=== PATIENT | male | born 1975 | race Caucasian/White ===

== ENCOUNTER 2024-03-11 15:14 | Inpatient (IN) | payer OTHER, SELFPAY ==
[2024-03-11] VITALS (8 sets, daily range): BP systolic 120–189; BP diastolic 73–111; BMI 31.1
[2024-03-11] MEDS: ZOSYN 100 IV (11:19)
[2024-03-11] MEDS: VANCOCIN 540 MG IV (11:51)
[2024-03-11 11:58] LABS: Blood Urea Nitrogen 10 mg/dl (9-20); Calcium 9.5 mg/dl (8.4-10.2); Carbon Dioxide 27 mmol/L (22-30); Chloride 104 mmol/L (98-107); Estimated Creatinine Clearance > 125 ml/min; Glucose 106 mg/dl (70-99); Potassium 4.6 mmol/L (3.5-5.1); Sodium 139 mmol/L (135-145); eGFR > 60.00
[2024-03-11 12:04] LABS: Hematocrit 36.6 % (39.0-52.0); Hemoglobin 12.8 g/dL (13.0-18.0); Mean Corpuscular Hgb 28.4 pg (27.0-31.0); Mean Corpuscular Volume 81.2 fL (80.0-94.0); Mean Platelet Volume 9.6 fL (7.4-10.4); Platelet Count 172 10^3/uL (130-400); Red Blood Cell Count 4.51 10^6/uL (4.70-6.10); Red Cell Dist. Width 13.2 % (11.5-14.5); White Blood Cell Count 3.7 10^3/uL (4.8-10.8)
[2024-03-11 12:13] LABS: Absolute Neutrophils -Man Diff 1.3 10^3/uL (1.4-6.5); Atypical Lymphocytes 2 %; Band Neutrophils 2 % (0-3); Eosinophils 8 % (0-6); Lymphocytes 38 % (20-51); Monocytes 16 % (2-9); Segmented Neutrophils 34 % (42-75)
[2024-03-11 12:14] LABS: Anisocytosis 1+; Normal RBC Morphology No; Platelets Checked Yes
[2024-03-11 12:15] LABS: Hypochromasia Slight; Polychromasia 1+; Total Cells Counted 100
--- NOTE | 2024-03-11 12:52 | ED.GENMED ---
History of Present Illness
General
Chief Complaint: Facial Problem
Source: patient
Exam Limitations: none
Time Seen by Provider: 03/11/24 10:54
History of Present Illness
History of Present Illness:
Patient with left pinna injection for eczema on March 02. March 07 was seen for redness and swelling. Started doxycycline 200 mg/day. Symptoms progressed. Given Rocephin 2 days ago and changed to cephalexin. However symptoms have continued to
progress. 102 fever 2 days ago. Some pain to the ear and jaw.
Past History
Past History
ED Past Medical History: GERD, HTN and Hypothyroidism
ED Past Surgical History: None
Social History
Tobacco: Non-smoker
Alcohol: Occasional
Living: with family
Employment: Employed
Review of Systems
Review of Systems
Constitutional: Reports fever
Phy Exam
Physical Exam
Physical Exam:
GENERAL: Alert and oriented in no apparent distress
EYE: Orbits normal.
NECK: Supple, left submandibular adenopathy. Tender preauricular nodes. Significant swelling and erythema to the left pinna with deformity. Some fluctuance towards the more superior aspect
ENT: Pharynx without erythema. No drooling or stridor
CARDIAC: Regular rate and rhythm without any obvious murmurs.
LUNGS: Clear breath sounds,normal
NEUROLOGICAL: Alert and oriented , grossly non-focal
SKIN: Warm and dry, no rash or lesion, no discoloration, skin intact.
PSYCH: Normal and appropriate interaction.
Course
Orders/Labs/Results
Orders:
Orders
03/11/24 11:08
IV Insert/Care/Rem.- Treatment PRN
03/11/24 11:10
Piperacillin/Tazo 4.5 Gram [Zosyn] 4.5 gram in 100 ml IV NOW
03/11/24 11:18
Basic Metabolic Panel Urgent
Complete Blood Count/With Diff Urgent
Manual Differential Urgent
03/11/24 11:24
Vancomycin [Vancocin] 2,000 mg 0.9% Sodium Chloride 500 ml [Nss] 500 ml IV NOW
03/11/24 13:18
Ketorolac [Toradol] 15 mg .ROUTE .STK-MED ONE
03/11/24 13:19
Ketorolac [Toradol] 15 mg IV NOW STA
Abnormal Lab Results
03/11/24
11:18
WBC 3.7 L 10^3/uL
(4.8-10.8)
RBC 4.51 L 10^6/uL
(4.70-6.10)
Hgb 12.8 L g/dL
(13.0-18.0)
Hct 36.6 L %
(39.0-52.0)
Abs Neuts (Manual) 1.3 L 10^3/uL
(1.4-6.5)
Segmented Neutrophils 34 L %
(42-75)
Monocytes (Manual) 16 H %
(2-9)
Eosinophils (Manual) 8 H %
(0-6)
Glucose 106 H mg/dl
(70-99)
03/11/24 11:18
03/11/24 11:18
Vital Signs
Initial and Last Documented VS:
Initial Vital Signs
Temp Pulse Resp BP Pulse Ox
98.2 F 79 18 189/111 99
03/11/24 09:49 03/11/24 09:49 03/11/24 09:49 03/11/24 09:49 03/11/24 09:49
Last Documented Vital Signs
Temp Pulse Resp BP Pulse Ox
98.2 F 79 18 141/81 98
03/11/24 09:49 03/11/24 09:49 03/11/24 09:49 03/11/24 13:00 03/11/24 13:21
*Critical Care Note
Total Time (30-74mins, 75-104mins- exclusive of procedures): Not Applicable
ED Attending Note
-
Portions of this chart may have been created with voice recognition software.� Occasional wrong word or��sound alike� substitutions may have occurred due to the inherent limitations of voice recognition software.
Discharge Plan
Departure
Patient Disposition: Admit
Date of Disposition: 03/11/24
Time of Disposition: 12:51
Presentation/result/management discussed w/ accepting MD/DO: ENT
Discharge Problem:
Left pinna cellulitis/abscess, Failed outpatient management
Prescriptions:
No Action
lansoprazole [Prevacid] 30 MG capsule,delayed release(DR/EC)
30 mg PO BID
Theragen Tablet
1 tab PO DAILY
alprazolam [Xanax] 0.5 mg Tablet
0.25 mg PO DAILYPRN PRN (Reason: anxiety)
famotidine [Pepcid] 20 mg Tablet
20 mg PO HS
cephalexin 500 mg Capsule
500 mg PO Q8H
calcium polycarbophil [FiberCon] 625 mg Tablet
625 mg PO BID
valsartan 160 mg Tablet
160 mg PO DAILY
Visbiome 112.5 billion cell Capsule
1 cap PO DAILY
cholecalciferol (vitamin D3) [Vitamin D3] 50 mcg (2,000 unit) Capsule
50 mcg PO DAILY
coQ10 (ubiquinol) 100 mg Capsule
100 mg PO DAILY
Neuriva Plus Brain Performance 1.7 mg-400 mcg- 2.4 mcg Capsule
1 cap PO DAILY
SAMe butanedisulfonate-betaine 400-600 mg Powder In Packet
1 ea PO BID
Referrals:
Don Remy DO [Family Provider] -
Interventions
Interventions:
*Risk Screen - Suicide Last Done: 03/11/24 09:49
*General Assessment Last Done: 03/11/24 09:49
*Neglect/Abuse Screening Last Done: 03/11/24 09:49
*ED COVID-19 Vaccine History Last Done: 03/11/24 11:55
ED- Neurological Assessment Last Done: 03/11/24 11:16
ED-Skin Assessment Last Done: 03/11/24 11:16
Discharge Date and Time
Print Language: IRISH
[2024-03-11] MEDS: TORADOL 15 MG IV (13:20)
--- NOTE | 2024-03-11 14:56 | CON.MD ---
Consultation - Medical
-
dictated
L ear chondritis, with a tiny abscess
cx obtained]
very likely pseudomonas
on zosyn/vanco
will follow
--- NOTE | 2024-03-11 15:02 | HPS.HSE ---
Family Physician
-
Family Physician: Don Remy
Chief Complaint
-
progressive erythema/fever at the pinna
History of Present Illness
48-year-old male with past medical history of GERD, hypertension, eczema now presents for persistent erythema, swelling of the left ear. Particularly the left pinna after there was an injection of steroids for eczema on March 02. Patient states
he was injected twice. Patient was subsequently seen 5 days afterwards for redness and swelling, patient symptoms were refractory to doxycycline, Rocephin, cephalexin. Spiked a temperature of 102 Fahrenheit 2 days ago. Now presenting with ear and
jaw pain as well. Remains afebrile at present, blood pressure 136/73, pulse 79. White count 3.7, mild neutropenia. Wound culture taken, started on IV antibiotics. ENT was consulted.
Medical History
Past Medical History
Past Medical History: Reports GERD and HTN
Additional Past Medical History:
Eczema
Past Surgical History: Reports None
Social History
Tobacco: Non-smoker
Alcohol: None
Family History
Family History: Not pertinent
Allergies / Home Medications
Allergies reflects when Allergies were last updated in [facility].
Home Medications with original date entered in [facility]
Allergy/Medication List:
Allergies
Allergy/AdvReac Type Severity Reaction Status Date / Time
No Known Allergies Allergy Verified 03/11/24 09:49
Home Medications
lansoprazole 30 mg capsule,delayed release (Prevacid) 30 mg PO BID 05/03/18
B6 1.7 mg-folic 400 mcg-B12 2.4 nez-drlhln-nnebxzxibyvo oral capsule (Neuriva Plus Brain Performance) 1 cap PO DAILY 03/11/24
Lactobac no.2-Bifidobac no.1-S. thermo 112.5 billion cell capsule (Visbiome) 1 cap PO DAILY 03/11/24
SAMe butanedisulfonate 400 mg-betaine 600 mg oral powder packet 1 ea PO BID 03/11/24
alprazolam 0.5 mg tablet (Xanax) 0.25 mg PO DAILYPRN PRN anxiety 03/11/24
calcium polycarbophil 625 mg tablet (FiberCon) 625 mg PO BID 03/11/24
cephalexin 500 mg capsule 500 mg PO Q8H 03/11/24
cholecalciferol (vitamin D3) 50 mcg (2,000 unit) capsule (Vitamin D3) 50 mcg PO DAILY 03/11/24
coQ10 (ubiquinol) 100 mg capsule 100 mg PO DAILY 03/11/24
famotidine 20 mg tablet (Pepcid) 20 mg PO HS 03/11/24
therapeutic multivitamin 1 tab PO DAILY 03/11/24
valsartan 160 mg tablet 160 mg PO DAILY 03/11/24
Review of Systems
-
A 12 point ROS was completed and negative except as noted: Yes
Physical Exam
Vital Signs
Vital Signs
Temp Pulse Resp BP Pulse Ox
98.2 F 79 18 136/73 98
03/11/24 09:49 03/11/24 09:49 03/11/24 09:49 03/11/24 14:00 03/11/24 14:45
Physical Exam
General: Well Developed and Well Nourished
HEENT: Other (Supple, left submandibular adenopathy. Tender preauricular nodes. Significant swelling and erythema to the left pinna with deformity. Some fluctuance towards the more superior aspect)
Respiratory: Clear
Cardiac: S1/S2
GI: Soft, Non Tender and Non Distended
Musculoskeletal: No Clubbing
Skin: Warm and Dry
Neuro: Awake, Alert, Oriented and AO x 3
Hematologic/Lymphatic: No Lymphadenopathy
Psych: Calm
Laboratory Results
-
03/11/24 11:18
03/11/24 11:18
Data Reviewed
-
Lab Data: Labs Reviewed by me
Impression/Plan
-
IMPRESSION:
48-year-old male with past medical history of GERD, hypertension, eczema now presents for persistent erythema, swelling of the left ear after steroid injection.
PLAN:
#Left Ear/Pinna cellulitis/Chondritis
#Small Abscess
-CT facial bone/temporal bone to rule out underlying abscess
- Vanc, Cefepime
-F/u cultures
-ENT (Dr. bullard Consulted)
�IVF as needed
� Monitor fever curve, white count
#Hypertension
� Continue losartan
#GERD
� Continue PPI, famotidine
#DVT prophylaxis
� HSQ
--- NOTE | 2024-03-11 16:25 | PHA.VAN.IN ---
Assessment
- Assessment
Renal Function: Appears similar to baseline
AUC Dosing Plan
- Dosing Variables
Dosing Weight (kg): 114
Dosing CrCl (ml/min): 125
Vd coefficient (L/kg): 0.7
- Empiric Dosing
Initial / Loading Dose: 2000mg - 03/11 11:51
Maintenance Regimen: Vanc 1750mg Q12H - give 1000mg x1 at 2000 and start regimen 03/12 0600
Estimated AUC (mcg*h/mL): 450
Estimated Peak (mcg*h/mL): 30.2
Estimated Trough (mcg/ml): 10.2
Estimated Half Life (H): 6.4
- Monitoring
No levels ordered at this time: consider levels in next few days
Pharmacokinetics Vancomycin I
- -
Patient Age: 48
Patient Sex: Male
Vancomycin Day #: 1
Indication: Skin And Soft Tissue
Requesting Provider: Dr. Lugo
Pertinent Antimicrobial Allergies:
NKDA
Height / Weight:
Height 6 ft 2 in
Actual Weight 113.8 kg
Pertinent Past Medical History: BMI ~32
- Vital Signs / Lab Results
Temp Pulse Resp BP Pulse Ox
99.1 F 75 18 132/86 99
03/11/24 16:24 03/11/24 16:24 03/11/24 16:24 03/11/24 16:24 03/11/24 16:24
Lab Results - Hematology
03/11/24
11:18
WBC 3.7 L
Band Neutrophils 2
Lab Results - Chemistry
03/11/24
11:18
BUN 10
Creatinine 0.9
Estimated Creat Clear > 125
[2024-03-11] MEDS: HEPARIN 5000 UNITS SC ×2 (16:54→23:00)
[2024-03-11] MEDS: MAXIPIME 2000 MG IV ×2 (16:54→23:00)
[2024-03-11] MEDS: STERILE WATER FOR INJECTION 10 ML IV ×2 (16:54→23:00)
[2024-03-11] MEDS: NSS 1000 IV (16:55)
[2024-03-11] MEDS: VANCOCIN 200 IV (19:58)
[2024-03-11] MEDS: PROTONIX 40 MG PO (20:02)
[2024-03-11] MEDS: TYLENOL 650 MG PO (20:02)
[2024-03-11] MEDS: FIBERCON 625 MG PO (20:02)
--- NOTE | 2024-03-11 20:15 | PTCARENOTE ---
Resumed care of pt sitting up in bed AAOx3. Pt reports headache and left ear pain /. PRN Tylenol administered as ordered. Left arm int now infusing ABX as ordered. Pt denies any other complaints at this time. Call [facility] in reach. Will continue to
monitor.
[2024-03-11] MEDS: PEPCID 20 MG PO (22:47)
[2024-03-11] MEDS: XANAX 0.25 MG PO (22:50)
[2024-03-12] MEDS: VANCOCIN 535 MG IV ×2 (05:59→18:27)
[2024-03-12 07:30] VITALS: BP 152/91
[2024-03-12] MEDS: STERILE WATER FOR INJECTION 10 ML IV ×3 (07:51→23:42)
[2024-03-12] MEDS: PROTONIX 40 MG PO ×2 (07:52→17:18)
[2024-03-12] MEDS: DIOVAN 160 MG PO (07:52)
[2024-03-12] MEDS: HEPARIN 5000 UNITS SC ×3 (07:52→23:42)
[2024-03-12] MEDS: FIBERCON 625 MG PO ×2 (07:52→19:49)
[2024-03-12] MEDS: MAXIPIME 2000 MG IV ×3 (07:52→23:42)
[2024-03-12] MEDS: VISBIOME 1 CAP PO (07:53)
[2024-03-12] MEDS: NON-FORMULARY ITEM 1 UNIT PO ×2 (07:54→15:50)
--- NOTE | 2024-03-12 08:57 | PHA.VAN.FU ---
Vancomycin Assessment / Plan
- Assessment
Renal Function: Stable
WBC's are: WNL
In the past 24 hrs, patient has been: Afebrile
Concomitant Antimicrobials: Cefepime
- Dosing Plan
Continue: 1750mg Q12H
- Monitoring Plan
No level(s) ordered at this time: Consider levels in next few days
- Follow Up
Pharmacy will continue to follow.
Vancomycin Follow UP
- -
Patient Age: 48
Patient Sex: Male
Vancomycin Day #: 2
Indication: Skin And Soft Tissue
Requesting Provider: Dr. Lugo
Pertinent Antimicrobial Allergies:
NKDA
Height / Weight:
Height 6 ft 2 in
Actual Weight 109.724 kg
Pertinent Past Medical History: BMI ~32
- Vital Signs / Lab Results
Temp Pulse Resp BP Pulse Ox
98.4 F 72 18 152/91 100
03/12/24 07:30 03/12/24 07:30 03/12/24 07:30 03/12/24 07:30 03/12/24 07:30
Lab Results - Hematology
03/11/24
11:18
WBC 3.7 L
Band Neutrophils 2
Lab Results - Chemistry
03/11/24
11:18
BUN 10
Creatinine 0.9
Estimated Creat Clear > 125
Microbiology Results
03/11/24 14:58 Wound Culture - Preliminary
Abscess Staphylococcus species
[2024-03-12 09:05] LABS: Hemoglobin 13.2 g/dL (13.0-18.0); Mean Corp Hgb Conc. 34.7 g/dL (33.0-37.0); Mean Corpuscular Hgb 28.8 pg (27.0-31.0); Mean Platelet Volume 9.6 fL (7.4-10.4); Platelet Count 181 10^3/uL (130-400); Red Blood Cell Count 4.58 10^6/uL (4.70-6.10); White Blood Cell Count 3.1 10^3/uL (4.8-10.8)
--- NOTE | 2024-03-12 09:11 | W.PN.ENT ---
Today's Communication
-
L pinna chondritis/small abscess
symptomatically much better, small area of fluctuance still
--will return later today to re-aspirate, await final C&S results
incidental maxillary sinus atelectasis, asymptomatic
--further treatment if becomes symptomatic
Impression / Plan
-
L pinna chondritis/small abscess
symptomatically much better, small area of fluctuance still
--will return later today to re-aspirate, await final C&S results
incidental maxillary sinus atelectasis, asymptomatic
--further treatment if becomes symptomatic
Subjective Data
-
no further ear pain, no dc.
denies facial pain/pressure, some clear rhinorrhea, no nasal obst, no diplopia or visual problems
recent URI rx'ed with abx, steroids
Objective Data
-
Vital Signs
Temp Pulse Resp BP Pulse Ox
98.4 F 72 18 152/91 100
03/12/24 07:30 03/12/24 07:30 03/12/24 07:30 03/12/24 07:30 03/12/24 07:30
Intake & Output
03/11/24 03/12/24 03/13/24
06:59 06:59 06:59
Intake:
Oral fluids 800 / 800
IV piggybacks 735 / 735
Other:
Number of approximated MODERATE 3
amounts of urine
Lab Results
03/12/24 08:33
Calcium 9.5 mg/dl (8.4-10.2) 03/11/24 11:18
Physical Exam
-
L pinna with 1cm area of fluctuance superiorly, less erythema, no tenderness
nose normal
98.6
WBC pending
prelim cx=S. Aureus
CT temp bones reviewed, L pinna edema, B maxillary opacification with L>R atelectasis
[2024-03-12 09:32] LABS: ALT (SGPT) 31 U/L (0-50); AST (SGOT) 28 U/L (17-59); Albumin 4.1 g/dl (3.5-5.0); Alkaline Phosphatase 49 U/L (38-126); Blood Urea Nitrogen 9 mg/dl (9-20); Calcium 9.4 mg/dl (8.4-10.2); Carbon Dioxide 26 mmol/L (22-30); Chloride 105 mmol/L (98-107); Estimated Creatinine Clearance > 125 ml/min; Glucose 104 mg/dl (70-99); Potassium 4.3 mmol/L (3.5-5.1); Sodium 137 mmol/L (135-145); Total Bilirubin 0.5 mg/dl (0.2-1.3); Total Protein 6.5 g/dl (6.3-8.2); eGFR > 60.00
--- NOTE | 2024-03-12 11:05 | W.PN.UPDATE ---
Update Note
Progress Note Update
L pinna abscess I&D'ed. verbal consent (bleeding, continued infection). 1/4 cc local/epi. incised w/11 blade. 1 cc pus expressed. dressing applied, can be removed later today.
--- NOTE | 2024-03-12 13:24 | W.PN.HOSP.TC ---
Today's Communication/Plan
-
CW abx
Follow cx data
Assessment / Plan
Assessment / Plan
48-year-old male with past medical history of GERD, hypertension, eczema now presents for persistent erythema, swelling of the left ear after steroid injection.
PLAN:
#Left Ear/Pinna cellulitis/Chondritis
#Small Abscess
-CT facial bone/temporal bone shows cellulitis
- s/p local I&D by ENT
- CW showing staph aureus - follow identification and sensitivities
- cw Vanc, Cefepime for today
#Hypertension
� Continue losartan
#GERD
� Continue PPI, famotidine
#DVT prophylaxis
� HSQ
Anticipated Discharge: 24 - 48 hours
Subjective/Interval History
-
Date of Service: March 12, 2024
s/p I*D of left ear pinna today .
Pain from pinna bit more after I&D
No fever /chills
Objective Data
-
Labs:
Laboratory Results
03/12/24
08:33
WBC 3.1 L
Hgb 13.2
Hct 38.0 L
Plt Count 181
Sodium 137
Potassium 4.3
Chloride 105
Carbon Dioxide 26
BUN 9
Creatinine 0.9
Glucose 104 H
Calcium 9.4
Total Bilirubin 0.5
AST 28
ALT 31
Alkaline Phosphatase 49
Vital Signs:
Vital Signs
Temp Pulse Resp BP Pulse Ox
98.4 F 72 18 152/91 100
03/12/24 07:30 03/12/24 07:30 03/12/24 07:30 03/12/24 07:30 03/12/24 07:30
I&O
03/11/24 03/12/24 03/13/24
06:59 06:59 06:59
Intake Total 5 / 1535
Balance 1534 / 153
Review of Systems
-
Constitutional: Denies Fever
EENT: Denies Sore Throat
Respiratory: Denies Trouble Breathing
Cardiac: Denies Chest Pain
Abdomen/GI: Denies Nausea or Vomiting
Neuro: Denies Dizzy
Physical Exam
-
General: No Apparent Distress
HEENT: Moist Mucous Membranes
Respiratory: Non Labored Respirations; Negative Accessory Resp Muscle Use
Skin: Other (left ear in dressing s/p i&d this morning)
Neuro: AO x 3
Psych: Calm; Negative Confused or Agitated
Data Reviewed
-
Labs: Labs Reviewed by me
[2024-03-12] MEDS: TORADOL 15 MG IV (13:42)
[2024-03-12 16:00] VITALS: BP 135/84
--- NOTE | 2024-03-12 16:38 | CM ---
Reviewed chart, met with patient to obtain information for assessment. Patient stated that he lives with his who was at bedside to obtain information for assessment. Patient stated that he lives with his four children. They are in a two story
home with two steps to enter. He described himself as independent with his ADLs, personal care, dressing and bathing. He ambulates without device. He denied any DME in his home. 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 Patient can drive
and can transport himself to the store and does his own shopping.
Patient has never had VN services. He has not been to a SNF.
Patient has a prescription plan and uses, [facility] pharmacy in [place] for all of his medications.
His PCP is, Don Tinoco.
Patient stated that he feels he is at baseline and would like to return home when medically cleared.
Plan: Case management will continue to follow and assist with discharge planning. Home when stable.
[2024-03-12] MEDS: PEPCID 20 MG PO (19:48)
[2024-03-12 23:00] VITALS: BP 127/77
[2024-03-12] MEDS: XANAX 0.25 MG PO (23:42)
[2024-03-12] MEDS: TYLENOL 650 MG PO (23:47)
[2024-03-13 07:00] VITALS: BP 137/89
[2024-03-13] MEDS: VANCOCIN 535 MG IV (07:00)
[2024-03-13] MEDS: ZOFRAN 4 MG IV (07:00)
[2024-03-13 07:20] LABS: Hematocrit 38.1 % (39.0-52.0); Hemoglobin 13.4 g/dL (13.0-18.0); Mean Corp Hgb Conc. 35.2 g/dL (33.0-37.0); Mean Corpuscular Volume 82.5 fL (80.0-94.0); Mean Platelet Volume 9.6 fL (7.4-10.4); Platelet Count 191 10^3/uL (130-400); Red Blood Cell Count 4.62 10^6/uL (4.70-6.10); Red Cell Dist. Width 12.8 % (11.5-14.5); White Blood Cell Count 3.5 10^3/uL (4.8-10.8)
[2024-03-13 07:33] LABS: ALT (SGPT) 29 U/L (0-50); AST (SGOT) 27 U/L (17-59); Albumin 4.3 g/dl (3.5-5.0); Alkaline Phosphatase 50 U/L (38-126); Blood Urea Nitrogen 10 mg/dl (9-20); Calcium 9.7 mg/dl (8.4-10.2); Carbon Dioxide 28 mmol/L (22-30); Chloride 104 mmol/L (98-107); Estimated Creatinine Clearance 122 ml/min; Glucose 111 mg/dl (70-99); Potassium 4.6 mmol/L (3.5-5.1); Sodium 139 mmol/L (135-145); Total Bilirubin 0.5 mg/dl (0.2-1.3); Total Protein 6.7 g/dl (6.3-8.2); eGFR > 60.00
[2024-03-13 08:05] LABS: % Basophils 1.4 % (0-2); % Eosinophils 5.6 % (0-6); % Immature Granulocytes 0.6 % (0-0.5); % Lymphocytes 51.7 % (20.5-51.1); % Monocytes 8.8 % (1.7-9.3); % Neutrophils 31.9 % (42.2-75.2); Absolute Basophils 0.1 10^3/uL (0-0.2); Absolute Eosinophils 0.2 10^3/uL (0-0.7); Absolute Lymphocytes 1.8 10^3/uL (1.2-3.4); Absolute Monocytes 0.3 10^3/uL (0.1-0.6); Absolute Neutrophils 1.1 10^3/uL (1.4-6.5); Nucleated Red Blood Cells % 0 % (-)
--- NOTE | 2024-03-13 08:17 | W.PN.ENT ---
Today's Communication
-
L pinna abscess, clinically much better
await final C&S results, OK to dc to home on po abx for 10 days pending culture sensitivities
will add topical bactroban ointment TID
incidental maxillary sinus atelectasis, asymptomatic
--further treatment if becomes symptomatic
Impression / Plan
-
L pinna abscess, clinically much better
await final C&S results, OK to dc to home on po abx for 10 days pending culture sensitivities
will add topical bactroban ointment TID
incidental maxillary sinus atelectasis, asymptomatic
--further treatment if becomes symptomatic
Subjective Data
-
no further ear pain, no dc. some itching
Objective Data
-
Vital Signs
Temp Pulse Resp BP Pulse Ox
98.5 F 77 18 137/89 99
03/13/24 07:00 03/13/24 07:00 03/13/24 07:00 03/13/24 07:00 03/13/24 07:00
Intake & Output
03/12/24 03/13/24 03/14/24
06:59 06:59 06:59
Intake:
Oral fluids 800 / 800 2200 / 2200
IV piggybacks 735 / 735
Other:
Number of approximated MODERATE 3
amounts of urine
Number of approximated LARGE 3
amounts of urine
Lab Results
03/13/24 06:37
03/13/24 06:37
Calcium 9.7 mg/dl (8.4-10.2) 03/13/24 06:37
Total Bilirubin 0.5 mg/dl (0.2-1.3) 03/13/24 06:37
AST 27 U/L (17-59) 03/13/24 06:37
ALT 29 U/L (0-50) 03/13/24 06:37
Alkaline Phosphatase 50 U/L (38-126) 03/13/24 06:37
Physical Exam
-
L pinna with 1.5 cm area superiorly of erythema. single drop of purulence expressed from incision site. no tenderness.
Pathology reviewed from prior ear bx, chronic dermatitis
[2024-03-13] MEDS: STERILE WATER FOR INJECTION 10 ML IV (08:29)
[2024-03-13] MEDS: HEPARIN 5000 UNITS SC (08:29)
[2024-03-13] MEDS: MAXIPIME 2000 MG IV (08:29)
[2024-03-13] MEDS: NON-FORMULARY ITEM 1 UNIT PO (08:33)
[2024-03-13] MEDS: PROTONIX 40 MG PO (08:33)
[2024-03-13] MEDS: FIBERCON 625 MG PO (08:33)
[2024-03-13] MEDS: DIOVAN 160 MG PO (08:33)
[2024-03-13] MEDS: VISBIOME 1 CAP PO (08:34)
--- NOTE | 2024-03-13 12:36 | W.PN.HOSP.TC ---
Today's Communication/Plan
-
DC
Assessment / Plan
Assessment / Plan
48-year-old male with past medical history of GERD, hypertension, eczema now presents for persistent erythema, swelling of the left ear after steroid injection.
PLAN:
#Left Ear/Pinna cellulitis/Chondritis
#Small Abscess
-CT facial bone/temporal bone shows cellulitis
- s/p local I&D by ENT
- CW showing staph aureus - MSSA
-Clinically improved.
-Switch to oral Bactrim and follow-up with the ENT as an outpatient regarding progression.
# Agranulocytopenia with mild low PMN >1000 though- advised to follow up next week after abx treatments.
#Hypertension
� Continue losartan
#GERD
� Continue PPI, famotidine
#DVT prophylaxis
� HSQ
Medically stable for discharge
Total of discharge 32 minutes
Anticipated Discharge: Today
Subjective/Interval History
-
Date of Service: March 13, 2024
No fever or chills.
Feels left ear is much better with regards to both swelling and pain.
No N/V/D.
Objective Data
-
Labs:
Laboratory Results
03/13/24
06:37
WBC 3.5 L
Hgb 13.4
Hct 38.1 L
Plt Count 191
Sodium 139
Potassium 4.6
Chloride 104
Carbon Dioxide 28
BUN 10
Creatinine 1.0
Glucose 111 H
Calcium 9.7
Total Bilirubin 0.5
AST 27
ALT 29
Alkaline Phosphatase 50
Vital Signs:
Vital Signs
Temp Pulse Resp BP Pulse Ox
98.5 F 77 18 137/89 99
03/13/24 07:00 03/13/24 07:00 03/13/24 07:00 03/13/24 07:00 03/13/24 07:00
I&O
03/12/24 03/13/24 03/14/24
06:59 06:59 06:59
Intake Total 1535 / 1535 2200 / 2200
Balance 1535 / 1535 0 / 2200
Review of Systems
-
Constitutional: Denies Fever
Respiratory: Denies Trouble Breathing
Cardiac: Denies Chest Pain
Abdomen/GI: Denies Abdominal Pain, Nausea or Vomiting
Neuro: Denies Dizzy
Physical Exam
-
General: No Apparent Distress
HEENT: Moist Mucous Membranes and Other (Left pinna-superiorly swollen and slightly red. No obvious external discharge.)
Respiratory: Clear to Auscultation
Cardiac: Regular Rhythm and S1/S2
Neuro: AO x 3
Data Reviewed
-
Labs: Labs Reviewed by me
--- NOTE | 2024-03-13 12:44 | W.DS.TRANS ---
DC Summary - Survey Analyst
-
Discharge Instructions:
Discharge Diagnosis/Procedures Left Ear/Pinna cellulitis/Chondritis
Diet Regular
Activity As tolerated
Driving Restrictions As prior to admission
Blood Work CBC with differential next week - obtain
through your PCP
Instructions:
Stand-Alone Forms:
Changes to Home Medications: Yes
Discharge Medications:
DC Medications w/original date entered in [facility]
lansoprazole 30 mg capsule,delayed release (Prevacid) 30 mg PO BID Gastrointestinal Issue 05/03/18
B6 1.7 mg-folic 400 mcg-B12 2.4 ozf-pxnqcd-jqybksjoblns oral capsule (Neuriva Plus Brain Performance) 1 cap PO DAILY Supplement 03/11/24
Lactobac no.2-Bifidobac no.1-S. thermo 112.5 billion cell capsule (Visbiome) 1 cap PO DAILY probiotic 03/11/24
SAMe butanedisulfonate 400 mg-betaine 600 mg oral powder packet 1 ea PO BID Supplement 03/11/24
alprazolam 0.5 mg tablet (Xanax) 0.25 mg PO DAILYPRN PRN anxiety 03/11/24
calcium polycarbophil 625 mg tablet (FiberCon) 625 mg PO BID Constipation 03/11/24
cholecalciferol (vitamin D3) 50 mcg (2,000 unit) capsule (Vitamin D3) 50 mcg PO DAILY Supplement 03/11/24
coQ10 (ubiquinol) 100 mg capsule 100 mg PO DAILY Supplement 03/11/24
famotidine 20 mg tablet (Pepcid) 20 mg PO HS Gastrointestinal Issue 03/11/24
therapeutic multivitamin 1 tab PO DAILY Supplement 03/11/24
valsartan 160 mg tablet 160 mg PO DAILY Blood Pressure 03/11/24
acetaminophen 325 mg tablet 650 mg (2 x 325 mg) PO Q6HPRN PRN mild pain/ fever>100.5F #1 tab 03/13/24
ketorolac 10 mg tablet 10 mg PO Q8H PRN Pain 5 days #15 tabs 03/13/24
mupirocin 2 % topical ointment 1 applic topical TID #15 grams 03/13/24
sulfamethoxazole 800 mg-trimethoprim 160 mg tablet (Bactrim DS) 1 tab PO BID #14 tabs 03/13/24
Home Medication Changes
New medication-Bactrim, mupirocin cream, ketorolac
Pending Results: No
--- NOTE | 2024-03-13 12:45 | W.DCSUMMARY ---
Discharge Summary
Discharge Data
Date of Admission: 03/11/24
Date of Discharge: 03/13/24
-
Pending Results: No
Hospital Course
Primary diagnosis:
Left Ear/Pinna cellulitis/Chondritis
MSSA on culture
Secondary diagnosis:
Hypertension
Gastroesophageal reflux disease.
Hospital course:
Presented with left pinna cellulitis with small abscess.CT facial bone/temporal bone shows cellulitis. s/p local I&D by ENT- CW showing MSSA . Swithched to oral Bactrim DS baseline on . He will follow-up with ENT on Tuesday this week.
He had a mild granulocytopenia and mild neutropenia but is neutrophils are more than thousand. Unclear if it related to infection. Advised to repeat blood count next weeks once he is done with antibiotics.
Consultants on board:
ENT - Dr Carrero
Discharge Plan
-
Patient Disposition: Home (Routine Discharge)
Discharge Diagnosis/Procedures: Left Ear/Pinna cellulitis/Chondritis
Diet: Regular
Activity: As tolerated
Driving Restrictions: As prior to admission
Blood Work: CBC with differential next week - obtain through your PCP
Referrals:
Alejandro Carrero MD [Active] - 03/16/24 (Call to make an appointment)
Don Remy, [Family Provider] - in less than 1 week
Prescriptions:
New
mupirocin 2 % Ointment
1 applic topical TID Qty: 15 0RF
acetaminophen 325 mg Tablet
650 mg PO Q6HPRN PRN (Reason: mild pain/ fever>100.5F) Qty: 1 0RF
sulfamethoxazole-trimethoprim [Bactrim DS] 800-160 mg tablet
1 tab PO BID Qty: 14 0RF
ketorolac 10 mg tablet
10 mg PO Q8H PRN (Reason: Pain) 5 Days Qty: 15 0RF
Continued
lansoprazole [Prevacid] 30 MG capsule,delayed release(DR/EC)
30 mg PO BID
therapeutic multivitamin Tablet
1 tab PO DAILY
alprazolam [Xanax] 0.5 mg Tablet
0.25 mg PO DAILYPRN PRN (Reason: anxiety)
famotidine [Pepcid] 20 mg Tablet
20 mg PO HS
calcium polycarbophil [FiberCon] 625 mg Tablet
625 mg PO BID
valsartan 160 mg Tablet
160 mg PO DAILY
Visbiome 112.5 billion cell Capsule
1 cap PO DAILY
cholecalciferol (vitamin D3) [Vitamin D3] 50 mcg (2,000 unit) Capsule
50 mcg PO DAILY
coQ10 (ubiquinol) 100 mg Capsule
100 mg PO DAILY
Neuriva Plus Brain Performance 1.7 mg-400 mcg- 2.4 mcg Capsule
1 cap PO DAILY
SAMe butanedisulfonate-betaine 400-600 mg Powder In Packet
1 ea PO BID
Discontinued
cephalexin 500 mg Capsule
500 mg PO Q8H
Discharge Orders:
Discharge Patient (As Directed); Ordered 03/13/24
Ordered By: Gerard Quinones
Discharge Date and Time
Print Language: [place]UWAIT[place]
[2024-03-13 13:08] VITALS: BP 130/66
--- NOTE | 2024-03-13 13:11 | W.PN.UPDATE ---
Update Note
Progress Note Update
cx reviewed, to be dc'ed on bactrim, mupirocin.
f/u Tuesday 12:30
== END 2024-03-13 13:35 | disposition home or self-care (01) | DRG 869 ==
LOC: 3 WEST ACU 15:14
PROVIDERS: ADMITTING PHYSICIAN Internal Medicine; ATTENDING PHYSICIAN Internal Medicine; CONSULT PHYSICIAN Otolaryngology; EMERGENCY PHYSICIAN Emergency Medicine; FAMILY PHYSICIAN Family Medicine
DX: T80.29XA Infection following other infusion, transfusion and therapeutic injection, initial encounter (principal); H60.12 Cellulitis of left external ear; Y84.8 Other medical procedures as the cause of abnormal reaction of the patient, or of later complication, without mention of misadventure at the time of the procedure; H61.032 Chondritis of left external ear; B95.61 Methicillin susceptible Staphylococcus aureus infection as the cause of diseases classified elsewhere; H60.02 Abscess of left external ear; I10 Essential (primary) hypertension; K21.9 Gastro-esophageal reflux disease without esophagitis; D70.9 Neutropenia, unspecified; E03.9 Hypothyroidism, unspecified
CPT/HCPCS: 70481; 80048; 80053; 85025; 85027; 87070; 87147; 87186; 87205; 96365; 96375; 99284; Q9967

== ENCOUNTER → 2024-05-17 09:22 | Outpatient (REF) | payer BC, SELFPAY | LOC: HWRAD 09:22 | PROVIDERS: ATTENDING PHYSICIAN Specialist; FAMILY PHYSICIAN Family Medicine | DX: R10.32 Left lower quadrant pain (principal) | CPT/HCPCS: 74177; Q9967 ==

== ENCOUNTER → 2024-06-01 06:20 | Day surgery (SDC) | payer BC, SELFPAY | LOC: GI 06:20 | PROVIDERS: ATTENDING PHYSICIAN Specialist | DX: K59.00 Constipation, unspecified (principal); R12 Heartburn; K31.89 Other diseases of stomach and duodenum; D12.3 Benign neoplasm of transverse colon; K63.5 Polyp of colon | CPT/HCPCS: 45380; 43239; 88305; 88342 ==

== ENCOUNTER 2024-10-08 17:40 | Emergency (ER) | payer BC, SELFPAY ==
[2024-10-08 17:45] VITALS: BP 168/97; BMI 30.3
[2024-10-08 18:00] VITALS: BP 151/79
[2024-10-08 18:01] LABS: % Basophils 0.8 % (0-2); % Eosinophils 2.6 % (0-6); % Immature Granulocytes 0.4 % (0-0.5); % Lymphocytes 37.1 % (20.5-51.1); % Neutrophils 53.1 % (42.2-75.2); Absolute Eosinophils 0.1 10^3/uL (0-0.7); Absolute Monocytes 0.3 10^3/uL (0.1-0.6); Absolute Neutrophils 2.8 10^3/uL (1.4-6.5); Hematocrit 36.4 % (39.0-52.0); Hemoglobin 12.3 g/dL (13.0-18.0); Mean Corp Hgb Conc. 33.8 g/dL (33.0-37.0); Mean Corpuscular Hgb 27.6 pg (27.0-31.0); Mean Corpuscular Volume 81.6 fL (80.0-94.0); Mean Platelet Volume 9.6 fL (7.4-10.4); Nucleated Red Blood Cells % 0 % (-); Platelet Count 188 10^3/uL (130-400); Red Blood Cell Count 4.46 10^6/uL (4.70-6.10); Red Cell Dist. Width 13.2 % (11.5-14.5); White Blood Cell Count 5.3 10^3/uL (4.8-10.8)
[2024-10-08 18:10] LABS: ALT (SGPT) 23 U/L (0-50); AST (SGOT) 20 U/L (17-59); Albumin 4.3 g/dl (3.5-5.0); Alkaline Phosphatase 49 U/L (38-126); Blood Urea Nitrogen 13 mg/dl (9-20); Calcium 9.7 mg/dl (8.4-10.2); Carbon Dioxide 29 mmol/L (22-30); Chloride 103 mmol/L (98-107); Estimated Creatinine Clearance > 125 ml/min; Glucose 116 mg/dl (70-99); Potassium 3.9 mmol/L (3.5-5.1); Sodium 139 mmol/L (135-145); Total Bilirubin 0.5 mg/dl (0.2-1.3); Total Protein 6.7 g/dl (6.3-8.2); eGFR > 60.00
--- NOTE | 2024-10-08 18:10 | ED.GENMED ---
History of Present Illness
General
Chief Complaint: Chest Pain
Source: patient
Exam Limitations: none
Time Seen by Provider: 10/08/24 17:49
History of Present Illness
History of Present Illness:
49-year-old male onset of sharp stabbing-like left arm pain laterally which also occurred slightly to the left lateral pectoral area. Started while driving at 4 PM. Sharp lasting seconds. Would recur about every 5 minutes. No exertional
component no shortness of breath pleuritic pain back pain weakness in the arm etc. Under significant work stress.
Past History
Past History
ED Past Medical History: GERD, HTN and Hypothyroidism
ED Past Surgical History: None
Social History
Tobacco: Non-smoker
Alcohol: Occasional
Living: with family
Employment: Employed
Review of Systems
Review of Systems
All Other Systems: Not applicable
Constitutional: Denies fever
Respiratory: Denies trouble breathing
Cardiac: Denies syncope
Phy Exam
Physical Exam
Physical Exam:
GENERAL: Alert and oriented in no apparent distress
EYE: Orbits normal.
NECK: Supple, no significant adenopathy.
ENT: Pharynx without erythema
CARDIAC: Regular rate and rhythm without any obvious murmurs.
LUNGS: Clear breath sounds,normal
ABDOMEN: Soft, without focal tenderness or distention
NEUROLOGICAL: Alert and oriented , grossly non-focal
SKIN: Warm and dry, no rash or lesion, no discoloration, skin intact.
MUSCULOSKELETAL: No edema,no deformity.Good color
PSYCH: Normal and appropriate interaction.
Scores
Heart Score for Chest Pain Patients
STEMI patient?: No
History: Slightly or Non-Suspicious
ECG: Normal
Age: >45 - <65 years
Risk Factors: 1 or 2 Risk Factors
Troponin: </= Normal Limit
Heart Score for Chest Pain Patients: 2
Heart Score Risk: 2.5% MACE over next 6 weeks
Course
Orders/Labs/Results
Orders:
Orders
10/08/24 17:43
EKG [Electrocardiogram (*1)] Urgent
Reason for Study: Tachycardia
EKG- Treatment ONCE
10/08/24 17:48
Complete Blood Count/With Diff Urgent
Comprehensive Metabolic Panel Urgent
D-Dimer Urgent
Troponin I Urgent
10/08/24 19:04
CR Chest - 2 Views Urgent
Comment:
Reason For Exam: cp
10/08/24 21:10
EKG [Electrocardiogram (*1)] Urgent
Reason for Study: Tachycardia
EKG- Treatment ONCE
10/08/24 21:11
Troponin I Urgent
Abnormal Lab Results
10/08/24
17:48
RBC 4.46 L 10^6/uL
(4.70-6.10)
Hgb 12.3 L g/dL
(13.0-18.0)
Hct 36.4 L %
(39.0-52.0)
Glucose 116 H mg/dl
(70-99)
10/08/24 17:48
10/08/24 17:48
Vital Signs
Initial and Last Documented VS:
Initial Vital Signs
Temp Pulse Resp BP Pulse Ox
98.2 F 82 17 168/97 99
10/08/24 17:45 10/08/24 17:45 10/08/24 17:45 10/08/24 17:45 10/08/24 17:45
Last Documented Vital Signs
Temp Pulse Resp BP Pulse Ox
98.2 F 72 19 130/85 93
10/08/24 17:45 10/08/24 20:00 10/08/24 20:00 10/08/24 20:00 10/08/24 20:00
MDM/Problems Addressed
Differential Diagnosis Includes:
Although moderate cardiac risk factors, low suspicion for ischemic symptoms. Nonexertional, sharp, stabbing-like. Lasting seconds. However workup warranted. Workup in progress. Will also check D-dimer.
*Radiology
Radiology exam reviewed: radiology read reviewed (Negative)
*Pulse Oximetry
Patient hypoxic: no
*Critical Care Note
Total Time (30-74mins, 75-104mins- exclusive of procedures): Not Applicable
Data Reviewed
Review of Other/Old Records Reveals: Labs, Records and Testing
Update Note
Update Note:
Stable. Atypical symptoms. Nonexertional. Will have cardiac follow-up for completeness with some moderate risk factors
Repeat EKG normal sinus rhythm at 67. No acute changes
ED Attending Note
-
Portions of this chart may have been created with voice recognition software.� Occasional wrong word or��sound alike� substitutions may have occurred due to the inherent limitations of voice recognition software.
Discharge Plan
Departure
Patient Disposition: Home (Routine Discharge)
Date of Disposition: 10/08/24
Time of Disposition: 21:54
Patient with high blood pressure during this ER visit?: Yes
Discharge Problem:
Anterior chest/arm pain
Instructions: Chest Pain CBC Follow Up
Prescriptions:
No Action
lansoprazole [Prevacid] 30 MG capsule,delayed release(DR/EC)
30 mg PO BID
therapeutic multivitamin Tablet
1 tab PO DAILY
alprazolam [Xanax] 0.5 mg Tablet
0.25 mg PO DAILYPRN PRN (Reason: anxiety)
famotidine [Pepcid] 20 mg Tablet
20 mg PO HS
calcium polycarbophil [FiberCon] 625 mg Tablet
625 mg PO BID
valsartan 160 mg Tablet
160 mg PO DAILY
Visbiome 112.5 billion cell Capsule
1 cap PO DAILY
cholecalciferol (vitamin D3) [Vitamin D3] 50 mcg (2,000 unit) Capsule
50 mcg PO DAILY
coQ10 (ubiquinol) 100 mg Capsule
100 mg PO DAILY
Neuriva Plus Brain Performance 1.7 mg-400 mcg- 2.4 mcg Capsule
1 cap PO DAILY
SAMe butanedisulfonate-betaine 400-600 mg Powder In Packet
1 ea PO BID
mupirocin 2 % Ointment
1 applic topical TID Qty: 15 0RF
acetaminophen 325 mg Tablet
650 mg PO Q6HPRN PRN (Reason: mild pain/ fever>100.5F) Qty: 1 0RF
sulfamethoxazole-trimethoprim [Bactrim DS] 800-160 mg tablet
1 tab PO BID Qty: 14 0RF
ketorolac 10 mg tablet
10 mg PO Q8H PRN (Reason: Pain) 5 Days Qty: 15 0RF
Referrals:
Larry Pham DO [Family Provider] - Follow up in 2-3 days
Interventions
Interventions:
*Risk Screen - Suicide Last Done: 10/08/24 17:45
*General Assessment Last Done: 10/08/24 17:45
*Neglect/Abuse Screening Last Done: 10/08/24 17:45
*ED- Fall Risk Assessment Last Done: 10/08/24 17:45
*ED COVID-19 Vaccine History Last Done: 10/08/24 17:45
ED- Cardiac Assessment Last Done: 10/08/24 17:51
Discharge Date and Time
Print Language: URDU
[2024-10-08 18:21] LABS: Troponin I < 0.012 ng/ml
[2024-10-08 19:00] VITALS: BP 138/76
[2024-10-08 20:00] VITALS: BP 130/85
[2024-10-08 21:13] VITALS: BP 136/70
[2024-10-08 21:50] LABS: Troponin I < 0.012 ng/ml
[2024-10-08 22:00] VITALS: BP 131/76
== END 2024-10-08 22:18 | disposition home or self-care (01) ==
LOC: EMR 17:40
PROVIDERS: EMERGENCY PHYSICIAN Emergency Medicine; FAMILY PHYSICIAN Family Medicine
DX: R07.89 Other chest pain (principal); I10 Essential (primary) hypertension
CPT/HCPCS: 99285; 71046; 80053; 84484; 85025; 85379; 93005

== ENCOUNTER → 2024-10-18 14:56 | Outpatient (REF) | payer BC, SELFPAY | LOC: RCS 14:56 | PROVIDERS: ATTENDING PHYSICIAN Student in an Organized Health Care Education/Training Program; FAMILY PHYSICIAN Family Medicine | DX: R07.2 Precordial pain (principal) | CPT/HCPCS: 93017 ==

== ENCOUNTER → 2024-10-23 10:33 | Outpatient (REF) | payer BC, SELFPAY | LOC: HWRAD 10:33 | PROVIDERS: ATTENDING PHYSICIAN Student in an Organized Health Care Education/Training Program; FAMILY PHYSICIAN Family Medicine | DX: R07.2 Precordial pain (principal); E78.2 Mixed hyperlipidemia | CPT/HCPCS: 75571; 93306 ==

== ENCOUNTER → 2025-01-08 07:46 | Outpatient (REF) | payer BC, SELFPAY | LOC: RAD 07:46 | PROVIDERS: ATTENDING PHYSICIAN Specialist; FAMILY PHYSICIAN Family Medicine | DX: K21.9 Gastro-esophageal reflux disease without esophagitis (principal) | CPT/HCPCS: 78264; A9541 ==